=== PATIENT | male | born 1970 | race Caucasian/White ===

== ENCOUNTER → 2021-05-02 | Outpatient (CLI) | payer OTHER ==
[~2021-05-02] MED LIST: HOLD METFORMIN - RECEIVED CONTRAST 20 ML VIAL IV SCH; IOHEXOL 350 MG/ML 100 ML (OMNIPAQUE 350) VIAL INJ ONE; IOHEXOL 350 MG/ML 100 ML (OMNIPAQUE 350) VIAL IV ONE; NS IV 1000 ML 1,000 ML IV ONE
--- NOTE | 2021-05-02 10:25 | Diagnostic Imaging Report ---
PROCEDURE; CT pelvis with and without contrast. TECHNIQUE: After oral contrast administration, imaging was obtained from the iliac crest to the lesser trochanters. Repeat imaging was performed after intravenous contrast administration. Auto Exposure Controls were utilized during the CT exam to meet ALARA standards for radiation dose reduction. INDICATION: A 3 months history of pneumaturia, fever and urinary frequency. Precontrast pelvic CT is performed. Subsequently the bladder was catheterized and instilled with contrast media with a pelvic CT then performed again. Subsequently the bladder was evacuated and a 3rd temporal axial CT sequences of the pelvis were performed. There is multiplanar reconstructions at the point of a bladder distention. I have no relevant comparison. FINDINGS: Precontrast enhanced imaging shows a moderate amount of intraluminal anti-dependent air within the bladder lumen. The bladder wall was not abnormally thickened and appeared smooth and homogenous. There was no appreciable perivesical edema. There is sigmoid diverticulosis but no features of acute or subacute diverticulitis. There is no abscess or drainable fluid collection. The pelvic small and large bowel is unobstructed. No perienteric or pericolonic edema. Colonic fecal load was not pathologic. There was no opacification of the distal ureters to suggest vesicoureteral reflux. The prostate and seminal vesicles appeared unremarkable. No sawyer-sacral or perisigmoidal scarring is identified. There is no appreciable bladder mass. Pelvic sidewalls and ileo-inguinal lymph node chains unremarkable. No prosthetic pathology is evident. The bony structures revealed a disc bulge and spondylosis at L4-L5 resulting in moderate spinal canal and mild to moderate bi-foraminal stenosis. There is a SI joint degenerative changes without erosion. Some chronic well-corticated bony fragmentation at the midline anterior and superior to the pubic symphysis present. There is no symphyseal diastases the superior and inferior pubic rami intact. Some fatty lymph nodes in the inguinal canals did not appear pathologic. Some arthritic changes to the bilateral hips. IMPRESSION: Intraluminal bladder air is present prior to its catheterization. No contrast extravasation. No identifiable bladder mass or perivesical edema. There is noninflamed sigmoid diverticulosis. There is no contrast extravasation after bladder distention. Postevacuation film showed no additional pathology. There is chronic well-corticated bony fragmentation anterosuperior to the non-diastased and arthritic pubic symphysis. No acute osseous pathology. No identified fistula. Dictated by: Dictated on workstation # [id number]
== END ==
LOC: RAD FS 08:48
PROVIDERS: ATTEND Urology
DX: N39.0 Urinary tract infection, site not specified (principal); K57.30 Diverticulosis of large intestine without perforation or abscess without bleeding
CPT/HCPCS: 72194